=== PATIENT | male | born 1955 | race Caucasian/White ===

== ENCOUNTER 2018-11-17 15:20 | Emergency (ER) | payer MEDICARE, OTHER, BC ==
[2018-11-17] MEDS: DIPHTH/TET/ACEL PERTUSS (ADULT) 0.5 ML VIAL IM* (18:51)
[2018-11-17] MEDS: LIDOCAINE 2% (MDV) 20 ML INJ INJ (19:21)
== END 2018-11-17 19:31 | disposition home or self-care (01) ==
LOC: FTE 15:20
DX: S61.217A Laceration without foreign body of left little finger without damage to nail, initial encounter (principal); I10 Essential (primary) hypertension; F17.210 Nicotine dependence, cigarettes, uncomplicated; W26.8XXA Contact with other sharp object(s), not elsewhere classified, initial encounter; Y92.9 Unspecified place or not applicable; Z23 Encounter for immunization; Z79.82 Long term (current) use of aspirin
CPT/HCPCS: 12002; 90471; 90715; 99283-25

== ENCOUNTER 2019-03-29 09:38 | Emergency (ER) | payer MEDICARE, OTHER | END 2019-03-29 10:44 | disposition home or self-care (01) | LOC: FTE 10:44 | DX: M54.41 Lumbago with sciatica, right side (principal); I10 Essential (primary) hypertension; F17.210 Nicotine dependence, cigarettes, uncomplicated; Z79.82 Long term (current) use of aspirin; Z98.61 Coronary angioplasty status | CPT/HCPCS: 99283 ==